=== PATIENT | female | born 1950 | race Caucasian/White ===

== ENCOUNTER → 2018-03-03 10:11 | Outpatient (CLI) | payer MEDICARE, SELFPAY ==
--- NOTE | 2018-03-03 10:17 | VDLE_ITS ---
Reason For Study: pain RIGHT LEFT GSV is normal. CFV is compressible, spontaneous, phasic, CFV is compressible, spontaneous, phasic, competent, and demonstrates normal competent and demonstrates normal augmentation. augmentation. FV is compressible, spontaneous, phasic, competent and demonstrates normal augmentation. POP V is compressible, spontaneous, phasic, competent and demonstrates normal augmentation. T/P Trunk is compressible. PTV is compressible. RT PerV is compressible. Varicose veins below the knee are dilated and noncompressible. Procedure Exam performed in department. The exam was diagnostic. A preliminary report was called and/or faxed to [facility]. Interpretation Summary Deep veins of the right lower extremity are patent and compressible segmentally. There is no evidence of right lower extremity deep vein thrombosis. Valvular competence appears intact within the proximal deep venous system on the right . The right greater saphenous vein appears patent and compressible segmentally. Acute superficial thrombophlebitis is noted involving superficial varicosities below the right knee. Crdering Physician: Shobha Grimes NP- Performed By: Vaughn Egan RVT and Student
== END ==
PROVIDERS: Family Provider Internal Medicine; PCP Internal Medicine; Referring Provider Nurse Practitioner Gerontology; Visit Provider Nurse Practitioner Gerontology
DX: M79.604 Pain in right leg (principal)
CPT/HCPCS: 93971

== ENCOUNTER → 2018-03-17 08:56 | Outpatient (CLI) | payer MEDICARE, BC, SELFPAY ==
--- NOTE | 2018-03-17 08:59 | VDLE_ITS ---
Reason For Study: pain RIGHT LEFT GSV is normal. CFV is compressible, spontaneous, phasic, CFV is compressible, spontaneous, phasic, competent, and demonstrates normal competent and demonstrates normal augmentation. augmentation. FV is compressible, spontaneous, phasic, competent and demonstrates normal augmentation. POP V is compressible, spontaneous, phasic, competent and demonstrates normal augmentation. T/P Trunk is compressible. PTV is compressible. RT PerV is compressible. Varicose veins below the knee are dilated and noncompressible. No change from previous study done 03/03/2018. Procedure Exam performed in department. The exam was diagnostic. A preliminary report was called and/or faxed to Shobha HAMMOND. Interpretation Summary Deep veins of the right lower extremity are patent and compressible segmentally. There is no evidence of right lower extremity deep vein thrombosis. Valvular competence appears intact within the proximal deep venous system on the right . The right greater saphenous vein appears patent and compressible segmentally. Acute superficial thrombophlebitis is noted involving superficial varicosities below the right knee. There has been no signficant change since a prior study on 03/03/2018. Crdering Physician: Shobha Grimes NP- Performed By: Virgilio Egan RVT
== END ==
PROVIDERS: Family Provider Internal Medicine; PCP Internal Medicine; Referring Provider Nurse Practitioner Gerontology; Visit Provider Nurse Practitioner Gerontology
DX: M79.604 Pain in right leg (principal)
CPT/HCPCS: 93971

== ENCOUNTER → 2018-08-11 08:57 | Outpatient (CLI) | payer MEDICARE, BC, SELFPAY ==
--- NOTE | 2018-08-11 09:04 | VDLE_ITS ---
Reason For Study: LEG PAIN RIGHT LEFT GSV is normal. GSV is normal. CFV is compressible, spontaneous, phasic, CFV is compressible, spontaneous, phasic, competent and demonstrates normal competent, and demonstrates normal augmentation. augmentation. FV is compressible, spontaneous, phasic, FV is compressible, spontaneous, phasic, competent and demonstrates normal competent and demonstrates normal augmentation. augmentation. POP V is compressible, spontaneous, phasic, POP V is compressible, spontaneous, phasic, competent and demonstrates normal competent and demonstrates normal augmentation. augmentation. T/P Trunk is compressible. T/P Trunk is compressible. PTV is compressible. PTV is compressible. RT PerV is compressible. LT PerV is compressible. Procedure Thrombus filled varicose veins noted lt Exam performed in department. medial calf. A preliminary report was called and/or faxed to Renny Grimes. Interpretation Summary Deep veins of the lower extremities are bilaterally patent and compressible segmentally. There is no evidence of deep vein thrombosis on either side. Valvular competence appears intact within the proximal deep venous systems bilaterally. The greater saphenous veins appear bilaterally patent and compressible segmentally. Acute superficial thrombophlebitis is noted involving superficial varicosities in the left medial calf. Ordering Physician: MANISH Rayo Referring Physician: Alix Byers M.D. Performed By: Katey Harper RVT
== END ==
PROVIDERS: Family Provider Internal Medicine; PCP Internal Medicine; Referring Provider Nurse Practitioner Gerontology; Visit Provider Nurse Practitioner Gerontology
DX: M79.605 Pain in left leg (principal)
CPT/HCPCS: 93970

== ENCOUNTER → 2019-03-09 12:49 | Outpatient (CLI) | payer MEDICARE, BC, SELFPAY ==
--- NOTE | 2019-03-09 12:54 | BI_ITS ---
BILATERAL DIGITAL MAMMOGRAM WITH TOMOSYNTHESIS: Mediolateraloblique and craniocaudal views demonstrate no evidence of dominant parenchymal masses. No cluster of microcalcifications or architectural distortion is seen. No evidence of skin thickening is identified. No comparison images are available. Breast Density: The breast tissue is heterogeneously dense, which may obscure small masses. CAD was used to assist in final assessment. BI/SCREEN MAMM (CAD) W/ELIAN BILAT IMPRESSION: NORMAL MAMMOGRAM BILATERALLY. ASSESSMENT CATEGORY: BIRADS Category 1: Negative. A letter regarding these results will be sent to the patient by the facility within 30 days. Yearly follow-up mammogram recommended. (A) Approximately 10% of breast cancers are not detected by mammography. A normal mammogram should not delay biopsy of a clinically suspicious abnormality. [id number] Electronically Signed: Neftaly Dawkins, at 17:43 EDT Tel , Service support ,
--- NOTE | 2019-03-09 12:54 | US_ITS ---
STUDY: ABDOMINAL ULTRASOUND - RIGHT UPPER QUADRANT REASON FOR VISIT: Female, 68 years old epigastric pain. TECHNIQUE: Ultrasound evaluation of the right upper quadrant was performed with real-time and static sidhu-scale imaging. TECHNICAL QUALITY: Adequate. COMPARISON: None. FINDINGS: Liver: The liver measures 13.3 cm. There is a heterogeneous echogenicity of the liver. The bile ducts are within normal limits. There is hepatic color flow. The direction of portal flow is hepatopetal. There is a demonstrated hypoechoic to anechoic region within the right hepatic lobe measuring 1.5 x 1.8 x 1.5 cm consistent with hepatic cyst. Gallbladder: Normal distended gallbladder. The gallbladder wall measures 3 mm. There is a negative sonographic Iraheta's sign. There is no pericholecystic fluid. There are no gallstones. Common Bile Duct (C.B.D.): The common bile duct measures 5 mm. Pancreas: Pancreatic head and body are partially visualized however the tail is incompletely seen due to overlying bowel gas. There is normal echogenicity of the pancreas. There is no demonstrated pancreatic mass or cyst. Right Kidney: Normal size of the right kidney. The right kidney measures 10.6 x 5.2 x 4.1 cm. Normal renal cortex. The right cortex measures 1.4 cm. There is no demonstrated renal mass or cyst. There is no right hydronephrosis. US/Abdomen Limited IMPRESSION: 1. No evidence of acute abdominal process by ultrasound. Simple appearing hepatic cyst as above. Electronically Signed: Gutierrez Sinha DO at 20:22 EDT , Service support ,
--- NOTE | 2019-03-09 13:29 | BD_ITS ---
STUDY: DUAL ENERGY X-RAY ABSORPTIOMETRY / DXA REASON FOR EXAM: Female, 68 years old. The patient is postmenopausal. Loss of height. TECHNIQUE: Bone Mineral Density (BMD) measurements of lumbar spine and bilateral hips were obtained. COMPARISON: None. FINDINGS: Lumbar Spine (L1-L4): g/cm2 (1.116) / T-score (-0.5) / Z-score (1.1) Findings are suggestive of normal bone density with a low fracture risk. Left Femur Total: g/cm2 (0.876) / T-score (-1.0) / Z-score (0.2) Left Femoral Neck: g/cm2 (0.798) / T-score (-1.7) / Z-score (-0.2) Right Femur Total: g/cm2 (0.890) / T-score (-0.9) / Z-score (0.3) Right Femoral Neck: g/cm2 (0.861) / T-score (-1.3) / Z-score (0.2) BD/Dexa Bone Density Study IMPRESSION: The patient is considered osteopenic as outlined below according to World Bo[employer] Organization (WHO) criteria with a moderate fracture risk. Reference Information: The T-score is the number of standard deviations above or below the standard which is normal for young adults at their peak bone mineral density. The World Health Organization (WHO) interprets the T-scores as follows: Above -1 Normal bone density Between -1 and -2.5 Osteopenia Equal to / or below -2.5 Osteoporosis As a practical clinical guideline, osteopenia may be graded as follows: Mild -1 through -1.5 Moderate -1.6 through -2.0 Severe -2.1 through -2.4 The Z-score is the number of standard deviations above or below age-matched controls. A Z-score of less than -1.5 would be considered abnormal. References: 1. NIH Osteoporosis and Related Bone Diseases http://www.osteo.org 2. International Society for Clinical Densitometry http://www.iscd.org 3. National Osteoporosis Foundation http://www.nof.org Electronically Signed: Franklin Caballero, at 15:33 EDT , Service support ,
== END ==
PROVIDERS: Family Provider Internal Medicine; PCP Internal Medicine; Referring Provider Internal Medicine; Visit Provider Internal Medicine
DX: R14.2 Eructation (principal); Z78.0 Asymptomatic menopausal state; Z12.31 Encounter for screening mammogram for malignant neoplasm of breast
CPT/HCPCS: 76705; 77063; 77067; 77080

== ENCOUNTER → 2020-12-26 13:39 | Outpatient (CLI) | payer MEDICARE, BC, SELFPAY ==
--- NOTE | 2020-12-26 13:50 | US_ITS ---
STUDY: ULTRASOUND OF THE FEMALE PELVIS - COMPLETE REASON FOR EXAM: Female, 70 years old. Abnormal uterine bleeding. LMP: Patient is postmenopausal. TECHNIQUE: Transabdominal and Transvaginal TECHNICAL QUALITY: Adequate. COMPARISON: None. FINDINGS: The uterus is anteverted and is in a midline position. The uterus measures 6.5 cm x 4.7 x 2.3 cm. Normal uterine cervix. The endometrium measures 2 mm in thickness, and is hyperechoic and fluid distended. There is no demonstrated myometrial mass. I.U.D. - The patient does not have an I.U.D. The right ovary is visualized. The right ovary measures 1.2 cm x 0.8 cm x 0.7 cm. There is no right ovarian cyst or ovarian mass. There is no visualized right adnexal mass or complex lesion. There is normal arterial and normal venous vascularity. The left ovary is visualized. The left ovary measures 0.9 cm x 0.8 cm x 1.7 cm. There is no left ovarian cyst or ovarian mass. There is no visualized left adnexal mass or complex lesion. There is normal arterial and normal venous vascularity. There is no fluid in the cul-de-sac. The pre void volume of the bladder was 216 ml. There was evidence of a uterine prolapse during the transvaginal examination. US/Pelvic (Non ) IMPRESSION: Fluid distended endometrium. Electronically Signed: Franklin Caballero MD at 15:08 EDT , Service support ,
--- NOTE | 2020-12-26 13:50 | US_ITS ---
STUDY: ULTRASOUND OF THE FEMALE PELVIS - COMPLETE REASON FOR EXAM: Female, 70 years old. Abnormal uterine bleeding. LMP: Patient is postmenopausal. TECHNIQUE: Transabdominal and Transvaginal TECHNICAL QUALITY: Adequate. COMPARISON: None. FINDINGS: The uterus is anteverted and is in a midline position. The uterus measures 6.5 cm x 4.7 x 2.3 cm. Normal uterine cervix. The endometrium measures 2 mm in thickness, and is hyperechoic and fluid distended. There is no demonstrated myometrial mass. I.U.D. - The patient does not have an I.U.D. The right ovary is visualized. The right ovary measures 1.2 cm x 0.8 cm x 0.7 cm. There is no right ovarian cyst or ovarian mass. There is no visualized right adnexal mass or complex lesion. There is normal arterial and normal venous vascularity. The left ovary is visualized. The left ovary measures 0.9 cm x 0.8 cm x 1.7 cm. There is no left ovarian cyst or ovarian mass. There is no visualized left adnexal mass or complex lesion. There is normal arterial and normal venous vascularity. There is no fluid in the cul-de-sac. The pre void volume of the bladder was 216 ml. There was evidence of a uterine prolapse during the transvaginal examination. US/Transvaginal Non- IMPRESSION: Fluid distended endometrium. Electronically Signed: Franklin Caballero MD at 15:08 EDT , Service support ,
== END ==
PROVIDERS: PCP Internal Medicine; Referring Provider Urology; Visit Provider Urology
DX: N93.9 Abnormal uterine and vaginal bleeding, unspecified (principal)
CPT/HCPCS: 76830; 76856

== ENCOUNTER 2021-03-31 10:18 | Observation (INO) | payer MEDICARE, BC, SELFPAY ==
[2021-01-09 13:39] VITALS: BMI 32.8
--- NOTE | 2021-03-25 14:17 | EKG12_ITS ---
Test Reason : PREOP Blood Pressure : / mmHG Vent. Rate : 082 BPM Atrial Rate : 082 BPM P-R Int : 144 ms QRS Dur : 072 ms QT Int : 352 ms P-R-T Axes : -18 054 053 degrees QTc Int : 411 ms Normal sinus rhythm Septal infarct , age undetermined Abnormal ECG Confirmed by JASS WEBSTER, MADISON ([id number]), sports editor GIOVANA FORD ([id number]) on 03/26/2021 9:31:43 AM Referred By: Esmer Jay Confirmed By:MADISON REGAN MD
[2021-03-25 15:00] LABS: Absolute Lymphocyte Count 1.16 X10^3/uL (0.83-4.51); Absolute Neutrophil Count 2.9 X10^3/uL (2.0-7.7); Basophil# 0.03 X10^3/uL; Basophil% 0.6 % (0-1); Eosinophil# 0.23 X10^3/uL; Eosinophils% 4.7 % (0-5); Hematocrit 43.8 % (37-47); Hemoglobin 14.6 g/dL (12.0-15.0); Lymphocyte # 1.16 X10^3/ul (0.83-4.51); Lymphocyte % 23.8 % (19-41); Mean Corp Hgb Conc 33.3 g/dL (32-36); Mean Corpuscular Hgb 30.8 pg (27.0-32.0); Mean Corpuscular Volume 92.4 fL (81-99); Mean Platelet Vol. 10.5 fl (6.2-12.0); Monocyte# 0.52 X10^3/uL; Monocyte% 10.7 % (0-10); NRBC Flagged by Analyzer 0 % (0-5); Neutrophil # 2.93 X10^3/uL (2.7-7.7); Platelet Count 193 K/mm3 (150-450); RBC Distribution Width CV 13.2 % (11.6-14.6); Red Blood Count 4.74 M/mm3 (4.2-5.4); White Blood Count 4.9 K/mm3 (4.4-11.0)
[2021-03-25 15:40] LABS: ALB/GLOB Ratio 1.1 RATIO (0.9-2.4); AST(SGOT) 34 U/L (15-37); Alanine Aminotransfer ALT/SGPT 25 U/L (13-56); Albumin, Serum 3.7 g/dL (3.2-5.0); Alkaline Phosphatase 93 U/L (45-117); Anion Gap 6 (5-15); BUN 15 mg/dL (7-18); BUN/Creat Ratio 15.4 RATIO (10-20); Calcium,Total 9.1 mg/dL (8.5-10.1); Chloride 105 mmol/L (98-107); Creatinine, Serum 0.98 mg/dL (0.55-1.02); EST Glomerular Filtration Rate 60 mL/min (>60); Est Glom Filt Rate - Afr Amer 73 mL/min (>60); Globulin 3.5 g/dL (2.2-4.2); Glucose 95 mg/dL (74-106); Potassium 3.9 mmol/L (3.5-5.1); Protein, Total 7.2 g/dL (6.4-8.2); Sodium Level 140 mmol/L (136-145)
[2021-03-25 15:40] LABS: Magnesium 2.1 mg/dL (1.6-2.6)
[2021-03-31] VITALS (20 sets, daily range): BP systolic 146–180; BP diastolic 74–95; PULSE 74–90; RESP 12–18; TEMP 35.8–36.8; O2SAT 96–100; BMI 33.6
--- NOTE | 2021-03-31 | HYST_PTH ---
PATIENT: GIULIANA MATA LOC: MS2 U#:[id number] AGE/SX: 70/F [place] [facility] [place]31/[address]: Dr. Esmer Jay MD : 1950 BED: 1 DIS: 04/01/2021 SPEC #: [id number] RECD: 03/31/21 12:48 STATUS: ALEKSEY MCKINNEY #: [id number] HALLIE: 03/31/21 00:[address]: Esmer Jay DEPT: SURGICAL PATHOLOGY RECD BY: Macario Nicholas ENTERED: 03/31/21 12:48 SP TYPE: HYSTERECT OTHR DR: MD Dr. Alix Castro DO Tissues: Uterus, NOS Procedures: Surgery Specimen Level V HEADER OPERATION: ERAS, vaginal hysterectomy, right salpingo-oophorectomy PRE-OP DIAGNOSIS: Incomplete uterovaginal prolapse, urge incontinence TISSUE SUBMITTED: Uterus, cervix, right fallopian tube, right ovary MICROSCOPIC DIAGNOSIS Uterus, cervix, right fallopian tube and right ovary, vaginal hysterectomy and right salpingo-oophorectomy: Cervix ? chronic cystic cervicitis. - Parakeratosis. Endometrium ? proliferative endometrium. Myometrium ? intramural leiomyomas (largest measuring 0.8 cm in greatest dimension). - Adenomyosis. Right fallopian tube - no pathologic diagnosis. Right ovary - no pathologic diagnosis. A calcified fibrous nodule, adjacent to fallopian tube (0.5 cm in greatest dimension). SJ:desire 04/01/2021 MICROSCOPIC DESCRIPTION Slides are reviewed. GROSS DESCRIPTION Received in fixative is one container labeled with the patient's name and designated uterus, cervix, right fallopian tube, right ovary. The specimen consists of a hysterectomy specimen consisting of uterus with cervix and detached fallopian tube and ovary identified as right. The uterus with cervix weighs 38 gm and?measures 8 x 4 x 2.5 cm. The serosal surface is mora, glistening. The ectocervical mucosa is unremarkable. The external os is oval in contour. The endocervical canal measures 3 cm in length and the endocervical mucosa is unremarkable. The triangular endometrial cavity measures 4.5 cm in length and up to 2 cm in width. The endometrium is mora, glistening without any mass lesion and measures <0.1 cm in thickness. Sections of the uterine wall reveal two nodular masses measuring 0.5 and 0.8 cm in greatest dimension. Sections of the fundus of the uterus reveal an ill-defined nodular mass. The uninvolved uterine wall measures up to 1.5 cm in thickness. The detached fallopian tube measures 4.5 cm in length and 0.5 cm in diameter. The fimbrial end is identified. No tubo-ovarian adhesions are noted. A small nodule is noted adjacent to the fallopian tube measuring 0.5 cm in greatest dimension and appears to be consistent with calcified nodule. The adjacent ovary measures 2 x 1 x 0.7 cm. Sections reveal unremarkable cut surfaces. Final Inspector And Tester sections are submitted in nine cassettes as follows: 1??anterior cervix, 2 - posterior cervix, 3 & 4 - anterior uterine wall (3 also contains the smaller nodular mass), 5 & 6 - posterior uterine wall, 7 - larger nodular mass and ill-defined nodular mass at the fundus, 8??right fallopian tube and ovary, 9 - calcified nodule adjacent to the fallopian tube after decalcification. / SJ:desire 03/31/21 TC:1 CPT: 50979, 40621
[2021-03-31] MEDS: Lactated Ringers 1,000 ML 40 ML IV ×3 (06:23→11:55)
[2021-03-31] MEDS: Scopolamine 1mg/72hr Patch 1 PATCH TD (06:29)
[2021-03-31] MEDS: Acetaminophen 500 MG Tablet 1000 MG PO (06:30)
[2021-03-31] MEDS: Enoxaparin 40 MG/0.4 ML Syringe SC ×2 (06:30→13:34)
[2021-03-31] MEDS: Gabapentin 600 MG Tablet PO (06:30)
[2021-03-31] MEDS: Celecoxib 200 MG Capsule 400 MG PO (06:30)
[2021-03-31] MEDS: dexAMETHasone 10 MG/ML Vial 8 MG IV (06:43)
[2021-03-31 07:05] LABS: Bedside Glucose 74 mg/dL (70-110)
--- NOTE | 2021-03-31 07:21 | PCM.HP.BLA ---
History and Physical Date of Admission: 03/31/21 [facility] [id number] [place] [address] [phone] OFFICE VISITDate of Service: 03/17/21 MR#:[id number]:[id number]: GIULIANA MATARep #:[id number]:[id number] Provider:Dr. 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: No Allergies codeine [From G Tussin AC] Allergy (Mild, Verified 01/09/21 13:39) hives guaifenesin [From G Tussin AC] Allergy (Mild, Verified 01/09/21 13:39) hives Medications aspirin 81 mg chewable tablet 81 mg PO DAILY 01/09/21 [History Confirmed 03/17/21] lisinopril 20 mg tablet 20 mg PO DAILY 01/09/21 [History Confirmed 03/17/21] lovastatin 40 mg tablet 40 mg PO DAILY 01/09/21 [History Confirmed 03/17/21] multivitamin 1 tab PO DAILY 01/09/21 [History Confirmed 03/17/21] nystatin-triamcinolone 100,000 unit/gram-0.1 % topical ointment 1 applic TOPICAL TID #15 g 01/09/21 [Rx Confirmed 03/17/21] estradiol 1 appful VAGINAL DAILY 03/17/21 [History Confirmed 03/17/21] Is last menstrual period known: No Post menopausal: Yes Patient : No : No PFSH Medical History Hyperlipidemia Hypertension Surgical History H/O cardiac radiofrequency ablation H/O heart surgery Family History Grandmother Colon cancer Sister Rectal cancer Father Prostate cancer Social History Smoking Status: Never smoker substance use type: does not use caffeine: Yes seatbelt use: always do you feel safe at home: Yes additional social history: - Patient is retired [employer] BSO Natalya combo Details: GIULIANA MATA is a 70 year old who presents for preop visit. planning TVHBSO combo case with Natalya. Female Reproductive History Menopausal Symptoms: No night sweats Pregancy History 2 Elective abortions Hx Para 2 Spontaneous abortions Hx # Term Pregnancies Ectopic pregnancies Hx # Pregnancies Multiple births # of living children ROS Const Constitutional: Denies fatigue, night sweats, weight gain or weight loss ENT ENT: Reports system reviewed and no additional complaints, except as documented Cardio Card: Denies chest pain Resp Resp: Denies cough or dyspnea GI GI: Reports as per HPI and abdominal pain; Denies constipation, nausea or vomiting : Reports urinary incontinence, urinary urgency and vaginal discharge; Denies nipple discharge, urinary frequency, urinary hesitancy, vaginal dryness, vaginal odor or vaginal pruritus Musc Musc: Denies arthralgias, back pain or muscle weakness Skin Skin/Breast: Denies alopecia, change in hair, dry skin, breast mass, breast pain, breast skin changes or nipple discharge Neuro Neuro: Reports system reviewed and no additional complaints, except as documented Psych Psych: Reports system reviewed and no additional complaints, except as documented Endo Endo: Denies cold intolerance, excessive sweating, heat intolerance or polydipsia Sumeet/Lymph Hematologic/Lymphatic: Denies easy bleeding, Denies easy bruising and Denies lymphadenopathy Exam Const General: cooperative, healthy appearing, comfortable, no acute distress and well developed Orientation: alert [facility] Head: normal to inspection and normocephalic Ears: hearing grossly normal bilaterally and external ears normal Nose: external nose normal and nares normal Face and sinus: normal facial exam Neck Neck: normal visual inspection and no lymphadenopathy Thyroid: thyroid normal Chest Chest palpation & inspection: abnormal inspection of the chest and abnormal inspection of the chest (patchy thickening and plaque like areas) Resp Effort & Inspection: normal respiratory effort Auscultation: clear to auscultation bilaterally Cardio Rate: regular rate Rhythm: regular rhythm Heart Sounds: S1 normal and S2 normal GI Inspection: normal to inspection and non-distended Palpation: soft and no hepatosplenomegaly General: bladder normal to palpation External Female Exam: abnormal external appearance, normal appearance of the urethra and lesion (patchy thickening and plaque like areas) Urethra: normal appearance of the urethra, normal palpation and no discharge Speculum Exam - Vagina: normal appearance of the vagina and normal vaginal discharge Speculum Exam - Cervix: normal appearance of the cervix and nontender Bimanual Exam- Vagina & Uterus: normal bimanual exam, uterine size normal, bladder normal to palpation, uterine shape normal, No tender, uterine mobility normal, consistency normal, normal palpation and non-tender Bimanual Exam- Adnexa, other: normal adnexae, adnexae mobile, no masses and normal Pelvic Support: normal Musc Other: gross motor intact no deficits, full bilateral strength Skin General: no rashes or lesions noted Neuro General: patient alert, patient awake, moves all extremities and no focal motor deficits Motor: muscle tone normal throughout Extrem General: normal to inspection and no pedal edema Psych Appearance: grossly normal Mental Status: mental status grossly normal Affect: normal affect Speech and Movement: speech and movement normal Coding Level of Care Code No Charge Diagnoses Cystocele Assessment and Plan Assessment and Plan (1) Cystocele: Status: Acute Comment: plan TVHBSO combo case with natalya Plan - Dr. Esmer Jay MD: After discussing the patient's diagnosis and treatment plan options, patient wishes to proceed with surgical management. I have discussed with the patient the risks, benefits, and alternatives of the procedure which include but are not limited to risks of anesthesia, bleeding, infection, possible damage to bowel, bladder, or surrounding vasculature which could lead to additional surgery to evaluate any complications. Patient agrees to procedure and wishes to proceed. ACOG/uptodate references given for additional information regarding procedure. UPDATE- I have seen the patient and performed any clinically relevant updates to the history and physical exam. Esmer Jay MD
--- NOTE | 2021-03-31 07:21 | PCM.OPRPT ---
Problems Associated Problem List Diagnoses (1) Cystocele, midline: (2) Cystocele: (3) Vulvar dermatitis: Report of Operation Date of Procedure: 03/31/21 Pre-Operative Diagnosis: see PL Post-Operative Diagnosis: same Surgery/Procedure Performed:: TVH LSO Description of Surgical Findings:: nl uterus right tube and ovary left tube and ovary normal unable to be reached and left in vivo. process project engineer: Ansley Dunlap Type of Anesthesia: General Specimen's removed: uterus, tubes, right tube and ovary Drains: ibarra Estimated Blood Loss (mL): 200 Fluids Replaced: crystalloid Description of Procedure: Patient was taken to the operating room and was placed under general anesthesia was prepped and draped in normal sterile fashion in the dorsal lithotomy position. Preoperative antibiotics and SCDs and Ibarra catheter was placed inside the bladder. Weighted speculum was placed in the vagina and the anterior and posterior lip of the cervix was grasped with 2 Raymon clamps and circumferentially injected with dilute vasopressin. A circumferential incision was made with a scalpel and the posterior cul-de-sac was entered into sharply and a longneck speculum was placed. The anterior cul-de-sac was also dissected down and entered into sharply and the uterosacral ligaments were clamped cut and suture ligated bilaterally followed by the cardinal ligaments which were Clamped cut and suture ligated bilaterally with 0 Monocryl. The uterus serially descended and progressive bites were taken bilaterally up to the level of the utero-ovarian ligament bilaterally which was clamped transected and double ligated with 0 Monocryl suture and 0 Vicryl free tie. right fallopian tube and ovary was well visualized and noted be within normal limits and the IP ligament was transected across the base with a surinder clamp, then the ovary and tube was removed and the pedicle double ligated with O monocryl. Left tube and ovary was unable to be removed due to limited vaginal access to it but they both appear to be within normal limits. Additional [id number] sutures were required at the base of bilateral pelvic sidewall pedicles #2 obtain hemostasis. The vagina was closed with [id number] 0 Vicryl pop offs including the posterior and anterior peritoneum in the reapproximation. Some breakthrough bleeding was still noted and therefore 2 of the cuff sutures were removed and bleeding identified along the right anterior peritoneum which was sutured with 0 Vicryl. The rest of the cuff was then again closed and excellent hemostasis was noted. Then Dr. Hoang began her portion of the procedure. Grafts/Implants Used: none Complications none Admit VTE Documentation VTE Present on Admission: No VTE Mechan Device Prophylaxis: SCD's VTE Pharm Prophylaxis ordered?: Yes Multi Select Codes Urinary/Genital Urinary/Genital CPT Codes: 30411 TVH+BS/O <250gr uterus
[2021-03-31] MEDS: Cefazolin 2 GM in 0.9% Normal Saline 100 ML IV (07:28)
--- NOTE | 2021-03-31 08:12 | PCM.OPRPT ---
Problems Associated Problem List Diagnoses (1) Cystocele: Report of Operation Date of Procedure: 03/31/21 Pre-Operative Diagnosis: cystocele Post-Operative Diagnosis: same Surgery/Procedure Performed:: anterior repair, bilateral sacrospinous ligament fixation with Dermis, cystoscopy with bilateral ureteral catheterization Surgeon: Jacqueline Hoang Type of Anesthesia: General Estimated Blood Loss (mL): 25 cc Description of Procedure: The patient is a 70-year-old female who presents for surgical intervention for pelvic organ prolapse after having undergone urodynamics and cystoscopy in the office. Informed consent was obtained. The patient was taken to the operating room and placed on the operating room table. Anesthesia monitored the head, neck, airway, IV access and vital signs throughout the case. Once anesthesia was appropriate ministered the patient was placed into dorsal lithotomy position and was prepped and draped in usual sterile fashion. She was then placed into Trendelenburg position and a Desouza catheter was inserted to straight drain and her bladder was drained. Hysterectomy and right salpingo-oophorectomy was then performed with closure of the cuff line per Dr. Jay. At this time the case was turned over to az. The anterior vaginal wall was grasped with Allis clamps and infiltrated submucosally with vasopressin. At this time a midline vertical incision approximately 2 cm in length was then made. Sharp and blunt dissection was performed on both sides of the incision as well as proximal and distal to the incision. Dissection continued until the sacrospinous ligaments were identified and freed from surrounding tissues. Proximally the dissection continued until the vaginal apex was reached and distally towards the area of the bladder neck. At this time the Capio device was used to pass an Ethibond suture through the sacrospinous ligament and through the piece of trimmed dermis bilaterally. The dermis was then secured into position and the suture was brought out at the vaginal apex through the mucosa. 2-0 Vicryl was used to tack the remainder of the dermis in interrupted fashion to the vaginal apex and full-thickness manner. Bilaterally the dermis was tacked to the white line with 2-0 Vicryl. At this time the cystocele was reduced completely and the anterior vaginal wall was supported. The vaginal mucosa was then closed with running interlocking 2-0 Vicryl. At this time the Ethibond sutures were tied down to the sacrospinous ligaments completing the repair. The Desouza catheter was then removed and a cystourethroscopy was performed through the urethra under direct visualization. Bilateral ureteral orifices were identified. There were no injuries in the urinary bladder, no hemorrhage, no mass or other abnormality. A 5 [place] whistle-tip catheter was then used to gently cannulate each ureteral orifice to 20 cm without difficulty and without evidence of injury. At this time the cystoscope was removed and the Desouza catheter was inserted. The vagina was packed with vaginal estrogen cream and plain packing. The patient was awakened and taken to the recovery room in good condition. There were no complications during this procedure. Grafts/Implants Used: Mission Dermis Complications None Admit VTE Documentation VTE Present on Admission: Yes VTE Mechan Device Prophylaxis: SCD's VTE Pharm Prophylaxis ordered?: Yes
[2021-03-31] MEDS: Vasopressin 20 UNITS/ML Vial (09:49)
[2021-03-31] MEDS: Estrogens,Conj. 1 Tube 1 DOSE (09:50)
[2021-03-31] MEDS: Ondansetron 4 MG/2 ML Vial IV (10:15)
--- NOTE | 2021-03-31 10:24 | PCM.DC ---
Discharge Instructions Diet Discharge Diet: No restrictions Activity Discharge Activity: May Not Drive and May Shower May resume sexual activity in: 8 weeks Lifting Restrictions: 5 pounds Additional Activity Instructions:: No exercise, no strenuous activity, no sexual activity, no tub bathing, no hot tubs, no swimming Dressing / Incision Call your doctor if your incision/area has: Continuous Slow Oozing, Sudden Increased Bleeding, Increased Pain/ Swelling, Increased Redness, Foul Smelling Discharge and Swelling at the incision site Call your doctor if you observe: Fever of 101 or Higher, Inability to urinate, Inability to have a bowel movement and Uncontrolled pain Follow Up Care Please Follow Up With: Jacqueline Hoang MD When: call office for appt Test Results: Test results from this visit will be discussed in further detail at your follow-up appointment, if applicable. Discharge Plan Admission Attending Provider: Esmer Jay Primary Care Provider: Alix Byers Consulting Providers: Jacqueline Hoang Discharge Orders/Prescriptions Prescriptions: New oxycodone-acetaminophen [oxycodone-acetaminophen] 1 TABLET tablet 2 tab PO Q8H PRN PRN (Reason: Pain) 7 Days Qty: 20 RF: 0 cephalexin [cephalexin] 500 MG capsule 500 mg PO Q12 3 Days Qty: 6 RF: 0 ondansetron HCl [ondansetron HCl] 8 MG tablet 8 mg PO Q8H PRN PRN (Reason: Nausea) 7 Days Qty: 20 RF: 0 No Action lisinopril 20 mg tablet 20 mg PO DAILY RF: 0 lovastatin 40 mg tablet 40 mg PO DAILY RF: 0 multivitamin Tablet 1 tab PO DAILY RF: 0 aspirin 81 mg tablet,chewable 81 mg PO DAILY RF: 0 nystatin-triamcinolone 100,000-0.1 unit/gram-% ointment 1 applic topical TID PRN (Reason: rash under breasts) RF: 0 fluconazole 150 mg tablet 150 mg PO DAILY RF: 0 triamcinolone acetonide 0.1 % cream 1 applic TOPICAL BID RF: 0 Referrals / Follow Up: Alix Byers DO [Primary Care Provider] - Disposition Disposition (needs filled in before D/C Order can be placed): Home, Self Care
[2021-03-31 10:41] LABS: Bedside Glucose 139 mg/dL (70-110)
--- NOTE | 2021-03-31 10:49 | SUR.PHASEI ---
WE ARE MONITORING THE PATIENT'S CO2 LEVEL. 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 SHE OS 100 PERCENT ON 6L VIA SIMPLE MASK.
--- NOTE | 2021-03-31 11:43 | SUR.PHASEI ---
PATIENT WAS STILL COMPLAINING OF PAIN. I WAS GIVING ANOTHER DOSE OF FENTANYL SHE SAID SHE FELT DIZZY. BP WAS CHECKED AND IT IS 168/85. I GAVE 12.5MCG OF FENTANYL AND DID NOT GIVE HER ANYMORE D/T DIZZINESS.
--- NOTE | 2021-03-31 12:19 | SUR.PHASEI ---
Noted apnea when patient sleeps. No previous diagnosis; patient notes snoring at night and feels tired in the day and takes one nap a day. This nurse educated patient on apnea. Patient is wearing a scop patch; noted dry mouth and dizziness. This nurse to tell anesthesia to be aware.
--- NOTE | 2021-03-31 12:31 | SUR.PHASEI ---
Petra MARTINEZ asked Dr. Leahy if it would be ok to take off her scopalamine patch d/t c/o dizziness and dry mouth. He told her that it would be okay to remove.
--- NOTE | 2021-03-31 12:34 | SUR.PHASEI ---
scop patch removed per Dr. Leahy, d/t dizziness and dry mouth and drowsiness
--- NOTE | 2021-03-31 12:35 | PCM.DC ---
Discharge Instructions Diet Discharge Diet: No restrictions Activity Discharge Activity: Return to Normal Activity, May Not Drive (while taking narcotic pain medications.) and May Shower May resume sexual activity in: 8 weeks Additional Activity Instructions:: No exercise, no strenuous activity, no sexual activity, no tub bathing, no hot tubs, no swimming Dressing / Incision Call your doctor if your incision/area has: Continuous Slow Oozing, Sudden Increased Bleeding, Increased Pain/ Swelling, Increased Redness, Foul Smelling Discharge and Swelling at the incision site Call your doctor if you observe: Fever of 101 or Higher, Inability to urinate, Inability to have a bowel movement and Uncontrolled pain Follow Up Care Please Follow Up With: Jacqueline Hoang MD Test Results: Test results from this visit will be discussed in further detail at your follow-up appointment, if applicable. Discharge Plan Admission Primary Reason for Your Visit: hysterectomy Attending Provider: Esmer Jay Primary Care Provider: Alix Byers Consulting Providers: Jacqueline Hoang Discharge Orders/Prescriptions Prescriptions: New oxycodone-acetaminophen [oxycodone-acetaminophen] 1 TABLET tablet 2 tab PO Q8H PRN PRN (Reason: Pain) 7 Days Qty: 20 RF: 0 cephalexin [cephalexin] 500 MG capsule 500 mg PO Q12 3 Days Qty: 6 RF: 0 ondansetron HCl [ondansetron HCl] 8 MG tablet 8 mg PO Q8H PRN PRN (Reason: Nausea) 7 Days Qty: 20 RF: 0 No Action lisinopril 20 mg tablet 20 mg PO DAILY RF: 0 lovastatin 40 mg tablet 40 mg PO DAILY RF: 0 multivitamin Tablet 1 tab PO DAILY RF: 0 aspirin 81 mg tablet,chewable 81 mg PO DAILY RF: 0 nystatin-triamcinolone 100,000-0.1 unit/gram-% ointment 1 applic topical TID PRN (Reason: rash under breasts) RF: 0 fluconazole 150 mg tablet 150 mg PO DAILY RF: 0 triamcinolone acetonide 0.1 % cream 1 applic TOPICAL BID RF: 0 Referrals / Follow Up: Alix Byers DO [Primary Care Provider] - Disposition Disposition (needs filled in before D/C Order can be placed): Home, Self Care
--- NOTE | 2021-03-31 13:10 | SUR.PHASEI ---
waiting room upstairs. will wait in AC 20. VSS. will cont to monitor
[2021-03-31] MEDS: HYDROcodone Bitartrate/Apap 5/325 Tablet PO ×2 (15:50→22:50)
[2021-03-31] MEDS: Dextrose 5%-Lactated Ringers 1,000 ML 100 ML IV (17:39)
[2021-03-31] MEDS: Atorvastatin Calcium 10 MG Tablet PO (21:16)
[2021-03-31] MEDS: Cephalexin 500 MG Capsule PO (21:16)
[2021-03-31] MEDS: Docusate Sodium 100 MG Capsule PO (21:16)
[2021-04-01 02:59] VITALS: BP 134/74; PULSE 76; RESP 18; TEMP 36.5; O2SAT 94
[2021-04-01] MEDS: Dextrose 5%-Lactated Ringers 1,000 ML 100 ML IV (03:03)
[2021-04-01 06:28] VITALS: BP 140/68; PULSE 75; RESP 18; TEMP 36.7; O2SAT 97
[2021-04-01] MEDS: HYDROcodone Bitartrate/Apap 5/325 Tablet PO (06:33)
--- NOTE | 2021-04-01 07:41 | PCM.PN.OB ---
Subjective Subjective patient recovering well, denies CP, SOB, N, or V. patient is up to chair, ibarra cath remains,tolerating adequate po, and pain is controlled with oral medications. Objective Data Objective Data Vital Signs: Vital Signs Temp Pulse Resp BP Pulse Ox 98.1 F 75 18 140/68 H 97 04/01/21 06:28 04/01/21 06:28 04/01/21 06:28 04/01/21 06:28 04/01/21 06:28 Oxygen Flow Rate (L/min) 1 Oxygen Delivery Method Room Air Weight: 196 lb Body Mass Index (BMI) 33.6 Intake & Output: Intake and Output for Last 24 Hours 03/30/21 03/31/21 04/01/21 23:59 23:59 23:59 Intake Total 2454.33 / 2454.33 940 / 940 Output Total 3050 / 3050 1100 / 1100 Balance -595.67 / -595.67 -160 / -160 Lab / Micro Data Result Diagrams: 03/25/21 14:32 03/25/21 14:32 Labs: Laboratory Results - last 24 hr 03/31/21 10:35: POC Glucose 139 H Micro: Microbiology 03/25/21 14:15 Nasal Secretion SARS-CoV-2 Antigen (Rapid) - Final Physical Exam Const alert, oriented x3 and no apparent distress Resp normal respiratory effort GI soft to palpation and non-distended Narrative: Minimal drainage on peripad Bladder / Kidney Exam: catheter in place Assessment & Plan (1) Status post vaginal hysterectomy: (2) History of right salpingo-oophorectomy: PLAN: patient is s/p TVH RSO POD 1 1. routine ERAS protocol postop care- increase ambulation, encourage oral intake and oral control of pain. lovenox and scds for dvt prophylaxis. See Dr Hoang orders for follow up care and discharge
[2021-04-01 08:11] LABS: Absolute Lymphocyte Count 0.82 X10^3/uL (0.83-4.51); Absolute Neutrophil Count 10.1 X10^3/uL (2.0-7.7); Hematocrit 38.3 % (37-47); Hemoglobin 13.3 g/dL (12.0-15.0); Lymphocyte # 0.82 X10^3/ul (0.83-4.51); Mean Corp Hgb Conc 34.7 g/dL (32-36); Mean Corpuscular Hgb 31.8 pg (27.0-32.0); Mean Corpuscular Volume 91.6 fL (81-99); Mean Platelet Vol. 10.5 fl (6.2-12.0); Monocyte# 0.74 X10^3/uL; Monocyte% 6.3 % (0-10); NRBC Flagged by Analyzer 0 % (0-5); Neutrophil % 86.4 % (47-70); Platelet Count 192 K/mm3 (150-450); RBC Distribution Width CV 13.4 % (11.6-14.6); RBC Distribution Width SD 45.1 fl (35.1-43.9); Red Blood Count 4.18 M/mm3 (4.2-5.4); White Blood Count 11.7 K/mm3 (4.4-11.0)
[2021-04-01 10:00] VITALS: BP 146/80; PULSE 75; RESP 18; TEMP 36.6; O2SAT 99
[2021-04-01] MEDS: Enoxaparin 40 MG/0.4 ML Syringe SC (10:05)
[2021-04-01] MEDS: Aspirin 81 MG TAB.CHEW PO (10:06)
[2021-04-01] MEDS: Docusate Sodium 100 MG Capsule PO (10:06)
[2021-04-01] MEDS: Cephalexin 500 MG Capsule PO (10:06)
[2021-04-01] MEDS: Lisinopril 20 MG Tablet PO (10:06)
--- NOTE | 2021-04-01 11:07 | NURSING ---
pt has not voided yet-pt aware to be drinking fluid
--- NOTE | 2021-04-01 12:00 | CASEMGMT ---
MICHELLE MCMULLEN in to discuss STAPLES form with patient. RN BENEDICT explained STAPLES form to patient, patient voiced understanding. Patient signed STAPLES form and filed in chart. Patient provided with copy of signed STAPLES form. Patient had no further questions to concerns at this time.
--- NOTE | 2021-04-01 12:25 | WOUNDNOTE ---
Pt had been up to the bathroom and voided 350 cc's. patient is just waiting ride for d/c home. MICHELLE Cullen reviewed discharge papers, etc. with patient.
== END 2021-04-01 12:35 | disposition home or self-care (01) ==
LOC: SDC 16:43 → MS2 16:43
PROVIDERS: Anesthesiology; Admitting Provider Urology; PCP Internal Medicine; Referring Provider Obstetrics & Gynecology; Visit Provider Obstetrics & Gynecology
PROC: (CPT 58260; principal; 2021-03-31 07:10)
PROC: (CPT 57260; 2021-03-31 07:10)
DX: N81.2 Incomplete uterovaginal prolapse (principal); E78.5 Hyperlipidemia, unspecified; Z86.718 Personal history of other venous thrombosis and embolism; K21.9 Gastro-esophageal reflux disease without esophagitis; I10 Essential (primary) hypertension; Z79.899 Other long term (current) drug therapy; Z79.82 Long term (current) use of aspirin; G25.81 Restless legs syndrome; L30.8 Other specified dermatitis; D68.9 Coagulation defect, unspecified; Z95.2 Presence of prosthetic heart valve
CPT/HCPCS: 00944; 57240; 58262; 36415; 80053; 82962; 83735; 85025; 86850; 86900; 86901; 87426; 88307; 93005; 96360; 96361; 96372; 99218; 99251; C9803; J7120; C1758; G0378; G0463; J2405

== ENCOUNTER → 2021-04-08 10:48 | Outpatient (CLI) | payer MEDICARE, BC, SELFPAY ==
--- NOTE | 2021-04-08 10:51 | VDLE_ITS ---
Reason For Study: Pain RIGHT LEFT CFV is compressible, spontaneous, phasic, CFV is compressible, spontaneous, phasic, competent and demonstrates normal competent, and demonstrates normal augmentation. augmentation. FV is compressible, spontaneous, phasic, competent and demonstrates normal augmentation. POP V is compressible, spontaneous, phasic, competent and demonstrates normal augmentation. T/P Trunk is compressible. PTV is compressible. RT PerV is compressible. Acute superficial vein thrombosis is noted in the right GSV proximal calf. Thrombus filled varicose veins noted in the prox-mid calf. Procedure This is a venous duplex using B-mode, color flow and spectral Doppler. Exam performed in department. A preliminary report was called and/or faxed to [facility]. VL/Venous Duplex US, Unilateral Interpretation Summary There is no evidence of right lower extremity deep vein thrombosis. Superficial thrombophlebitis right great saphenous vein proximal calf. Superficial thrombosed phlebitis involving right lower extremity varicosities p roximal to mid calf Normal flow patterns left common femoral vein Ordering Physician: Josefina Hoff Referring Physician: Alix Byers M.D. Performed By: Vashti Bell RVT
== END ==
PROVIDERS: PCP Internal Medicine; Referring Provider Nurse Practitioner; Visit Provider Nurse Practitioner
DX: M79.604 Pain in right leg (principal)
CPT/HCPCS: 93971

== ENCOUNTER → 2021-04-10 10:06 | Outpatient (CLI) | payer MEDICARE, BC, SELFPAY ==
--- NOTE | 2021-04-10 10:45 | RAD_ITS ---
STUDY: X-RAY CHEST REASON FOR EXAM: Female, 70 years old. Fever and cough TECHNIQUE: PA and lateral views of the chest. COMPARISON: None. FINDINGS: The lungs are clear and expanded. There is no demonstrated pleural abnormality. Sternal cerclage wires are present from a prior sternotomy. Normal mediastinum and sharon. Normal visualized pulmonary arteries. Normal visualized aortic arch and descending thoracic aorta. There are diffuse degenerative changes of the visualized thoracic spine. Normal visualized ribs, clavicles, and shoulders. There is no demonstrated abnormality of the visualized soft tissue structures of the upper abdomen. RAD/Chest PA and Lateral IMPRESSION: No acute pulmonary process Electronically Signed: Edward Deal MD at 16:50 EDT , Service support ,
== END ==
PROVIDERS: PCP Internal Medicine; Visit Provider Internal Medicine Pulmonary Disease
DX: U07.1 COVID-19 (principal); R05.9 Cough, unspecified
CPT/HCPCS: 71046; 87635; C9803; U0005; U0003

== ENCOUNTER 2021-04-11 15:56 | Outpatient (CLI) | payer MEDICARE, BC, SELFPAY ==
[2021-04-11 16:30] VITALS: BP 140/76; PULSE 80; RESP 16; TEMP 36.7; O2SAT 98; BMI 32.2
[2021-04-11] MEDS: 0.9% Saline Lock 10 ML Syringe IV (16:31)
[2021-04-11 17:01] VITALS: BP 134/83; PULSE 79; RESP 16; TEMP 36.5; O2SAT 100
[2021-04-11 18:01] VITALS: BP 147/77; PULSE 77; RESP 16; TEMP 36.8; O2SAT 100
== END 2021-04-11 18:02 | disposition home or self-care (01) ==
LOC: MS3OUT 15:56 → MS3 15:57
PROVIDERS: PCP Internal Medicine; Referring Provider Nurse Practitioner Acute Care; Visit Provider Nurse Practitioner Acute Care
DX: Z23 Encounter for immunization (principal); U07.1 COVID-19
CPT/HCPCS: J7050; M0245; Q0245; A4216

== ENCOUNTER → 2022-12-11 | Outpatient (CLI) | payer MEDICARE, BC, SELFPAY ==
--- NOTE | 2022-12-11 11:35 | CT_ITS ---
STUDY: CT ABDOMEN AND PELVIS WITH AND WITHOUT CONTRAST REASON FOR EXAM: Female, 72 years old. LLQ Pain RADIATION DOSAGE (If Supplied By Facility): CTDIvol = ( 19.90 ) mGy, DLP = ( 2045.87 ) mGycm TECHNIQUE: Transaxial images were obtained from the dome of the diaphragm to the symphysis pubis without oral contrast. IV 100mL Isovue-300 was administered. Sagittal and coronal images were reconstructed. Individualized dose optimization techniques were used for this CT. COMPARISON: None. FINDINGS: The visualized lung bases are unremarkable. 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 Pacer lead seen along the base of the heart. Liver is unremarkable aside from scattered simple hepatic cysts. No suspicious enhancing lesion. Normal gallbladder and extrahepatic biliary system. Normal spleen. Normal pancreas. There is a 1.74 cm smooth, low attenuation left adrenal mass, consistent with an adrenal adenoma. Normal right adrenal gland. Normal right kidney. Normal left kidney. Normal visualized stomach. Normal small intestine. Retained stool noted in the colon. The appendix is visualized and appears normal. Appendix seen on coronal recon images 47 through 61 Normal abdominal aorta. Normal inferior vena cava. Normal retroperitoneum. Normal urinary bladder. There is absence of the uterus consistent with a prior hysterectomy. Normal abdominal wall. There are diffuse degenerative changes of the visualized lumbar spine, and pelvis. CT/CT Abd/Pelvis W/WO Contrast IMPRESSION: Simple hepatic cysts, no specific follow-up needed 1.74 cm left adrenal likely adenoma. ACR White Paper guidelines (Tovar-Gaxiola, et al. JACR 2017; 14(8):2574-0164) suggest no imaging follow-up is necessary. ACR White Paper guidelines (Tovar-Gaxiola, et al. JACR 2017; 14(8):2168-9682) suggest no imaging follow-up is necessary. Consider biochemical assays to determine functional status and exclude pheochromocytoma if biopsy/resection is planned. Retained stool in the colon Normal appendix visualized Electronically Signed: Edward Deal MD at 12:20 EDT ,
[2022-12-11 11:44] LABS: CREATININE FINGERSTICK < 0.9 mg/dL (0.55-1.02); EGFR FINGERSTICK > 60.0000 mL/min (>60)
== END | disposition home or self-care (01) ==
LOC: CT 10:50
PROVIDERS: PCP Internal Medicine; Referring Provider Internal Medicine; Visit Provider Internal Medicine
DX: R10.32 Left lower quadrant pain (principal)
CPT/HCPCS: 74178; Q9967

== ENCOUNTER 2023-10-11 11:33 | Emergency (ER) | payer MEDICARE, SELFPAY ==
[2023-10-11 11:33] VITALS: BP 158/99; PULSE 94; RESP 17; TEMP 35.7; O2SAT 95; BMI 35.6
--- NOTE | 2023-10-11 11:49 | EKG12_ITS ---
Test Reason : DIZZY Blood Pressure : / mmHG Vent. Rate : 074 BPM Atrial Rate : 074 BPM P-R Int : 154 ms QRS Dur : 072 ms QT Int : 356 ms P-R-T Axes : -15 032 065 degrees QTc Int : 395 ms Sinus rhythm with marked sinus arrhythmia Nonspecific T wave abnormality Abnormal ECG Confirmed by David Pabon ([id number]), department editor AYAZ MITCHELL ([id number]) on 10/12/2023 9:56:27 AM Referred By: Confirmed By:David Pabon
--- NOTE | 2023-10-11 11:54 | EX.ED.DYSGE1 ---
HPI <MANISH Zapata - Last Filed: 10/11/23 14:33> History of Present Illness Chief Complaint: Dizziness Narrative Narrative: Patient is a 72-year-old female with history of hypertension hyperlipidemia who presents to the emergency department with feeling of near syncope, intermittent shortness of breath it has been ongoing for the last 5 days. Patient denies any significant chest pain. Patient was seen at [facility] 5 days ago, patient received a full cardiac workup with troponins, CTA of the chest that was negative, CT of the abdomen pelvis was negative. Patient was then discharged home. Patient states she is continue to have these episodes and she is here now. She states she is here today because [facility] was unsure what to do with her, so they are here for reevaluation. [facility] <MANISH Zapata - Last Filed: 10/11/23 14:33> [facility] Medical History (Reviewed 04/11/21 @ 08:04 by Jie Limon STEAM LOCOMOTIVE FIRER/FIREMAN, STEAM LOCOMOTIVE FIRER/FIREMAN-C) Alcohol use Cardiology follow-up encounter Cystocele, midline DVT (deep venous thrombosis) Former smoker Gastric reflux High cholesterol History of echocardiogram History of stress test Hyperlipidemia Hypertension Leg cramps Post-menopausal Rash Restless legs Shortness of breath on exertion Varicose vein of leg Wears dentures Wears glasses Home Medications lisinopril 20 mg tablet 20 mg PO DAILY BP 01/09/21 [History Last Taken 03/31/21 03:30] lovastatin 40 mg tablet 40 mg PO DAILY cholesterol 01/09/21 [History Last Taken 03/30/21 08:00] multivitamin 1 tab PO DAILY supplement 01/09/21 [History Last Taken 03/30/21 08:00] dexamethasone 6 mg tablet 6 mg PO DAILY 04/11/21 [History Last Taken Unknown] naproxen 500 mg tablet (Naprosyn) 500 mg PO BID 04/11/21 [History Last Taken Unknown] cephalexin 500 mg capsule 500 mg PO TID 7 days #21 caps 10/11/23 [Rx Last Taken Unknown] ondansetron 4 mg disintegrating tablet 4 mg PO Q8H PRN PRN Nausea #10 tabs 10/11/23 [Rx Last Taken Unknown] Allergy/AdvReac Type Severity Reaction Status Date / Time codeine [From Celio LOYOLA] Allergy Mild hives Verified 03/31/21 06:05 guaifenesin Allergy Mild hives Verified 03/31/21 06:05 [From Celio Deras ] Family History Grandmother Colon cancer Sister Rectal cancer Father Prostate cancer Surgical History H/O cardiac radiofrequency ablation H/O heart surgery History of colonoscopy Social History Smoking Status: Former smoker substance use type: does not use caffeine: Yes seatbelt use: always do you feel safe at home: Yes additional social history: - 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 Positive for intermittent dyspnea Gastrointestinal: Negative for any abdominal pain, nausea, vomiting, diarrhea, constipation, blood in stool, blood in vomit : Negative for any retention, blood in urine. Positive for urinary frequency, dysuria Muscle skeletal: Negative for any neck pain, back pain Neurological: Negative for any headache, syncope, dizziness. Positive for near syncope, lightheadedness Skin: Negative for any rashes, itching, abrasions, lacerations Psychiatric: Negative for any depression, anxiety, stress, suicidal ideation, homicidal ideation Hematologic: Negative for any excessive bruising, easy bleeding EXAM <MANISH Zapata - Last Filed: 10/11/23 14:33> Physical Exam Narrative Exam Narrative: Vital signs reviewed. HEET: Head normocephalic atraumatic, TMs clear bilaterally. Posterior pharynx is clear, moist mucous membranes. Nares clear bilaterally. Neck: Supple with no lymphadenopathy or tenderness. No signs of meningismus. Cardiac: Irregular rate no murmurs gallops or rubs, equal peripheral pulses bilaterally. Respiratory: Lungs clear to auscultation bilaterally. No chest tenderness. Abdomen: Soft, nontender, nondistended. No abdominal bruit or pulsatile masses. No hepatosplenomegaly Extremities: No peripheral edema, no signs of gross trauma or deformity. Active full range of motion of all extremities. Neuro: Cranial nerves II through XII intact, no focal neurological deficits. NIH stroke score 0 Skin: Clean dry and intact with no rash, purpura, petechiae, vesicles or pustules. Backs/flank: No CVA tenderness, no midline spinal tenderness, no deformity. Psych: Normal mood and affect. No SI, HI or acute psychosis. Const Vital Signs: 10/11/23 11:33 10/11/23 11:49 10/11/23 13:43 Temperature 96.2 F L 98.1 F Temperature Source Temporal Temporal Pulse Rate 94 84 Respiratory Rate 17 16 Blood Pressure 158/99 H 162/94 H Blood Pressure Mean 118 116 Pulse Ox 95 97 Oxygen Delivery Method Room Air Room Air Room Air 10/11/23 14:56 Temperature 97.8 F Temperature Source Pulse Rate 75 Respiratory Rate 16 Blood Pressure 186/93 H Blood Pressure Mean 124 Pulse Ox 99 Oxygen Delivery Method <Dr. Tab Cleaning DO - Last Filed: 10/11/23 15:58> Physical Exam Const Vital Signs: 10/11/23 11:33 10/11/23 11:49 10/11/23 13:43 Temperature 96.2 F L 98.1 F Temperature Source Temporal Temporal Pulse Rate 94 84 Respiratory Rate 17 16 Blood Pressure 158/99 H 162/94 H Blood Pressure Mean 118 116 Pulse Ox 95 97 Oxygen Delivery Method Room Air Room Air Room Air 10/11/23 14:56 Temperature 97.8 F Temperature Source Pulse Rate 75 Respiratory Rate 16 Blood Pressure 186/93 H Blood Pressure Mean 124 Pulse Ox 99 Oxygen Delivery Method [facility] <MANISH Zapata - Last Filed: 10/11/23 14:33> [facility] Lab Data Labs: Laboratory Results - last 24 hr 10/11/23 11:55 WBC 8.4 RBC 4.61 Hgb 14.7 Hct 42.4 MCV 92.0 MCH 31.9 MCHC 34.7 RDW Std Deviation 44.8 H RDW Coeff of Krystin 13.3 Plt Count 193 MPV 10.9 Immature Gran % (Auto) 0.500 Neut % (Auto) 77.6 H Lymph % (Auto) 14.0 L [place] % (Auto) 6.6 Eos % (Auto) 1.1 Baso % (Auto) 0.2 Absolute Neuts (auto) 6.5 Absolute Lymphs (auto) 1.18 Nucleated RBC % 0 Sodium 140 Potassium 3.4 L Chloride 105 Carbon Dioxide 31.0 Anion Gap 4 L BUN 19 H Creatinine 1.13 H Estim Creat Clear Calc 51.59 Est GFR (MDRD) Af Amer 61 Est GFR (MDRD) Non-Af 51 L BUN/Creatinine Ratio 16.8 Glucose 99 Calcium 9.7 Troponin I High Sens 8 B-Natriuretic Peptide 32.0 Urine Color Yellow Urine Clarity Sl. Cloudy Urine pH 6.5 Ur Specific [place]raphill 1.010 Urine Protein 15 H Urine Glucose (UA) Normal Urine Ketones Negative Urine Occult Blood 10 H Urine Nitrite Positive H Urine Bilirubin 1 H Urine Urobilinogen 1 H Ur Leukocyte Esterase 500 H Urine RBC 0-5 SEEN Urine WBC 25-50 SEEN Ur Squamous Epith Cells 0-5 SEEN Urine Bacteria 1+ Urine Mucus 0 SEEN Radiography Diagnostic Testing: Clinical Impression(s) from Imaging Studies Chest X-Ray 10/11/23 12:00 IMPRESSION: Stable examination. No acute abnormality is seen. Electronically Signed: Franklin Caballero MD at 12:44 EDT , EKG Sinus rhythm with marked sinus arrhythmia: Attestation: I personally reviewed and interpreted this EKG as follows: Comments: Sinus rhythm with marked sinus arrhythmia, rate 74 bpm, TX interval 154 ms, QRS duration 72 ms, no acute ST elevation, no acute infarct noted. Treatment and Re-Evaluation :: Differential diagnosis includes however is not limited to: Cardiac arrhythmia, ACS, HI, pulmonary embolus, dehydration, UTI Patient appears to be in no obvious respiratory distress vital signs are stable, patient appears nontoxic. Patient presents to the emerged part with 5 days of near syncopal episodes, feeling of intermittent shortness of breath. Patient was seen 5 days ago, had a full workup including CTA of the chest, abdomen pelvis, troponins that were all negative. Patient was discharged home. Patient is here for reevaluation. Patient denies any symptoms at this time. Patient denies any specific chest pain, nausea or vomiting. Patient will receive a full workup including troponins, chest x-ray, urinalysis for complaints of urinary symptoms. All radiologic examinations were read, reviewed by the emergency department attending. From these reads, a plan of care will be put in place. Patient's urinalysis was positive for infection with 1+ bacteria 25-50 white blood cells, 500 leuks, positive for nitrites. This was sent for culture, IV Rocephin given to the patient, laboratory values showed a normal white blood cell count, CBC was mostly unremarkable, chemistries showed a slight elevation in creatinine at 1.13, patient is normally at 1.0, patient be given 1 L of normal saline. GFR 51, patient's troponin as well as BNP was negative. Patient will receive a second troponin, patient received IV fluids, IV Rocephin. At this time, I do believe the patient can be discharged home. Patient was ambulatory several times to the bathroom with no difficulty. Patient was given IV Rocephin IV fluids. Patient be discharged home nausea medicine as well as Keflex 3 times a day for 7 days. Urine culture was sent. She is happy the plan of care, all questions answered, patient stable for discharge. <Dr. Tab Cleaning, DO - Last Filed: 10/11/23 15:58> [facility] Narrative Medical decision making narrative: Differential diagnosis includes however is not limited to: Cardiac arrhythmia, ACS, HI, pulmonary embolus, dehydration, UTI Patient appears to be in no obvious respiratory distress vital signs are stable, patient appears nontoxic. Patient presents to the emerged part with 5 days of near syncopal episodes, feeling of intermittent shortness of breath. Patient was seen 5 days ago, had a full workup including CTA of the chest, abdomen pelvis, troponins that were all negative. Patient was discharged home. Patient is here for reevaluation. Patient denies any symptoms at this time. Patient denies any specific chest pain, nausea or vomiting. Patient will receive a full workup including troponins, chest x-ray, urinalysis for complaints of urinary symptoms. All radiologic examinations were read, reviewed by the emergency department attending. From these reads, a plan of care will be put in place. Patient's urinalysis was positive for infection with 1+ bacteria 25-50 white blood cells, 500 leuks, positive for nitrites. This was sent for culture, IV Rocephin given to the patient, laboratory values showed a normal white blood cell count, CBC was mostly unremarkable, chemistries showed a slight elevation in creatinine at 1.13, patient is normally at 1.0, patient be given 1 L of normal saline. GFR 51, patient's troponin as well as BNP was negative. Patient will receive a second troponin, patient received IV fluids, IV Rocephin. At this time, I do believe the patient can be discharged home. Patient was ambulatory several times to the bathroom with no difficulty. Patient was given IV Rocephin IV fluids. Patient be discharged home nausea medicine as well as Keflex 3 times a day for 7 days. Urine culture was sent. She is happy the plan of care, all questions answered, patient stable for discharge. This patient was seen with a PA/STEAM LOCOMOTIVE FIRER/FIREMAN Individually assessed they patient including history and physical. I have reviewed everything on the chart that is available and agree with the documentation provided by the PA/STEAM LOCOMOTIVE FIRER/FIREMAN including discussion about the assessment, treatment plan, discussion, and return precautions. Patient presented today after having a full cardiac workup with this and see the results above. Patient did not report to the nurse practitioner initially that she had some nausea today after eating some yogurt and some other food. Patient did have an EKG performed here which was sinus rhythm with a ventricular rate of 74 bpm without sign ischemic change on my interpretation. Chest x-ray my interpretation showed no acute process. Urinalysis consistent with UTI and she was given a dose of Rocephin IV as well as some IV fluids. Cardiac workup negative today. Ablations a delta troponin is show he had a cardiac workup with 2 troponins initially. Patient will be given Zofran and Keflex for home. Return precautions were discussed. Lab Data Labs: Laboratory Results - last 24 hr 10/11/23 11:55 WBC 8.4 RBC 4.61 Hgb 14.7 Hct 42.4 MCV 92.0 MCH 31.9 MCHC 34.7 RDW Std Deviation 44.8 H RDW Coeff of Krystin 13.3 Plt Count 193 MPV 10.9 Immature Gran % (Auto) 0.500 Neut % (Auto) 77.6 H Lymph % (Auto) 14.0 L [place] % (Auto) 6.6 Eos % (Auto) 1.1 Baso % (Auto) 0.2 Absolute Neuts (auto) 6.5 Absolute Lymphs (auto) 1.18 Nucleated RBC % 0 Sodium 140 Potassium 3.4 L Chloride 105 Carbon Dioxide 31.0 Anion Gap 4 L BUN 19 H Creatinine 1.13 H Estim Creat Clear Calc 51.59 Est GFR (MDRD) Af Amer 61 Est GFR (MDRD) Non-Af 51 L BUN/Creatinine Ratio 16.8 Glucose 99 Calcium 9.7 Troponin I High Sens 8 B-Natriuretic Peptide 32.0 Urine Color Yellow Urine Clarity Sl. Cloudy Urine pH 6.5 Ur Specific [place] 1.010 Urine Protein 15 H Urine Glucose (UA) Normal Urine Ketones Negative Urine Occult Blood 10 H Urine Nitrite Positive H Urine Bilirubin 1 H Urine Urobilinogen 1 H Ur Leukocyte Esterase 500 H Urine RBC 0-5 SEEN Urine WBC 25-50 SEEN Ur Squamous Epith Cells 0-5 SEEN Urine Bacteria 1+ Urine Mucus 0 SEEN Radiography Diagnostic Testing: Clinical Impression(s) from Imaging Studies Chest X-Ray 10/11/23 12:00 IMPRESSION: Stable examination. No acute abnormality is seen. Electronically Signed: Franklin Caballero MD at 12:44 EDT , Discharge Plan Triage Chief Complaint: Dizziness ED Midlevel Provider: Adrian Matthew ED Provider: Tab Cleaning Dx/Rx/DC Orders Clinical Impression: Dizziness, Acute UTI, Nausea Instructions: Urinary Tract Infections in Women, ED Dizziness, Uncertain Cause Prescriptions: New ondansetron 4 mg tablet,disintegrating 4 mg PO Q8H PRN PRN (Reason: Nausea) Qty: 10 0RF cephalexin 500 mg capsule 500 mg PO TID 7 Days Qty: 21 0RF No Action lisinopril 20 mg tablet 20 mg PO DAILY lovastatin 40 mg tablet 40 mg PO DAILY multivitamin Tablet 1 tab PO DAILY dexamethasone 6 mg Tablet 6 mg PO DAILY naproxen [Naprosyn] 500 mg Tablet 500 mg PO BID Primary Care Provider: Alix Byers Referrals: Jacqueline Hoang MD [Med Staff - Active Staff] - Alix Byers DO [Primary Care Provider] - Activity Restrictions/Additional Instructions: Please maintain hydration. Take the antibiotic 3 times a day until finished. The urine was sent for culture. Return for any worsening nausea, vomiting, fever or chills. Disposition Disposition: Home, Self Care Discharge Date/Time: 10/11/23 14:58
--- NOTE | 2023-10-11 12:00 | RAD_ITS ---
STUDY: X-RAY CHEST REASON FOR EXAM: Female, 72 years old. Chest pain TECHNIQUE: COMPARISON: None. FINDINGS: The lungs are clear and expanded. There is no demonstrated pleural abnormality. Sternal cerclage wires are present from a prior sternotomy. The patient is status post mitral valve replacement. Normal mediastinum and sharon. Normal visualized pulmonary arteries. Normal visualized aortic arch and descending thoracic aorta. There are degenerative changes of the visualized thoracic spine. Normal visualized ribs, clavicles, and shoulders. There is no demonstrated abnormality of the visualized soft tissue structures of the upper abdomen. RAD/Chest 1 View (Portable) IMPRESSION: Stable examination. No acute abnormality is seen. Electronically Signed: Franklin Caballero MD at 12:44 EDT ,
[2023-10-11 12:04] LABS: Mucous, Urine 0 SEEN /hpf (<or=2+)
[2023-10-11 12:07] LABS: Color, Urine Yellow (Yellow); Glucose, Dipstick Normal (Normal); Ketone-Dipstick Negative (Negative); Leukocyte Esterase-Dipstick 500 /ul (Negative); Nitrite-Dipstick Positive (Negative); Occult Blood-Urine 10 /ul (Negative); Protein-Dipstick 15 mg/dl (Negative); Urine Clarity Sl. Cloudy (Clear); Urine Urobilinogen 1 mg/dl (Normal); Urine pH 6.5 (5.0 - 8.0)
[2023-10-11 12:09] LABS: Urine Bilirubin Dipstick 1 mg/dL (Negative)
[2023-10-11 12:16] LABS: Bacteria 1+ /hpf (None Seen); Red Blood Cells-Urine 0-5 SEEN /hpf (0-5); Squamous Epithelial Cells - UA 0-5 SEEN /hpf (5-10); White Blood Cells 25-50 SEEN /hpf (0-5)
[2023-10-11 12:21] LABS: Absolute Lymphocyte Count 1.18 X10^3/uL (0.83-4.51); Absolute Neutrophil Count 6.5 X10^3/uL (2.0-7.7); Basophil# 0.02 X10^3/uL; Basophil% 0.2 % (0-1); Eosinophil# 0.09 X10^3/uL; Eosinophils% 1.1 % (0-5); Hematocrit 42.4 % (37-47); Hemoglobin 14.7 g/dL (12.0-15.0); Lymphocyte # 1.18 X10^3/ul (0.83-4.51); Mean Corp Hgb Conc 34.7 g/dL (32-36); Mean Corpuscular Hgb 31.9 pg (27.0-32.0); Mean Platelet Vol. 10.9 fl (6.2-12.0); Monocyte# 0.56 X10^3/uL; Monocyte% 6.6 % (0-10); NRBC Flagged by Analyzer 0 % (0-5); Neutrophil # 6.54 X10^3/uL (2.7-7.7); Neutrophil % 77.6 % (47-70); Platelet Count 193 K/mm3 (150-450); RBC Distribution Width CV 13.3 % (11.6-14.6); RBC Distribution Width SD 44.8 fl (35.1-43.9); Red Blood Count 4.61 M/mm3 (4.2-5.4); White Blood Count 8.4 K/mm3 (4.4-11.0)
[2023-10-11 12:26] LABS: Anion Gap 4 (5-15); BUN 19 mg/dL (7-18); BUN/Creat Ratio 16.8 RATIO (10-20); Calcium,Total 9.7 mg/dL (8.5-10.1); Chloride 105 mmol/L (98-107); Creatinine, Serum 1.13 mg/dL (0.55-1.02); EST Glomerular Filtration Rate 51 mL/min (>60); Est Glom Filt Rate - Afr Amer 61 mL/min (>60); Estimated Creatinine Clearance 51.59 ml/min; Glucose 99 mg/dL (74-106); Potassium 3.4 mmol/L (3.5-5.1); Sodium Level 140 mmol/L (136-145); Troponin-I HS (w/2H Reflex) 8 pg/mL (3.0-54.0)
[2023-10-11] MEDS: Ceftriaxone 1 GM/50 ML BAG IV (12:41)
[2023-10-11] MEDS: 0.9% Normal Saline (1000mL) 1,000 ML 999 ML IV (13:35)
[2023-10-11 13:43] VITALS: BP 162/94; PULSE 84; RESP 16; TEMP 36.7; O2SAT 97
[2023-10-11 14:02] LABS: Reflex Troponin-HS? (from REC) Y
[2023-10-11 14:56] VITALS: BP 186/93; PULSE 75; RESP 16; TEMP 36.6; O2SAT 99
== END 2023-10-11 14:58 | disposition home or self-care (01) ==
PROVIDERS: Nurse Practitioner; Emergency Provider Student in an Organized Health Care Education/Training Program; PCP Internal Medicine; Visit Provider Student in an Organized Health Care Education/Training Program
DX: N39.0 Urinary tract infection, site not specified (principal); Z87.891 Personal history of nicotine dependence; R11.0 Nausea; R42 Dizziness and giddiness; I10 Essential (primary) hypertension; Z79.899 Other long term (current) drug therapy; R06.02 Shortness of breath; E78.00 Pure hypercholesterolemia, unspecified
CPT/HCPCS: 71045; 80048; 81001; 83880; 84484; 85025; 87077; 87086; 87088; 87186; 93005; 96361; 96365; 99284; J7030; J7050

== ENCOUNTER → 2023-10-15 | Outpatient (CLI) | payer BC, MEDICARE, SELFPAY ==
--- NOTE | 2023-10-15 13:00 | US_ITS ---
STUDY: ULTRASOUND OF THE FEMALE PELVIS - COMPLETE REASON FOR EXAM: Female, 72 years old. abnormal vaginal bleeding. Previous hysterectomy. LMP: TECHNIQUE: Transabdominal TECHNICAL QUALITY: Adequate. COMPARISON: None. FINDINGS: Surgically absent uterus. Surgically absent ovaries. No evidence for mass. US/Pelvic (Non ) IMPRESSION: No abnormality seen status post hysterectomy and bilateral oophorectomy. Electronically Signed: Mike Brooks MD at 22:41 EDT ,
== END | disposition home or self-care (01) ==
LOC: US 12:59
PROVIDERS: PCP Internal Medicine; Referring Provider Internal Medicine; Visit Provider Internal Medicine
DX: N93.9 Abnormal uterine and vaginal bleeding, unspecified (principal)
CPT/HCPCS: 76856

== ENCOUNTER → 2023-11-10 | Outpatient (CLI) | payer MEDICARE, BC, SELFPAY ==
--- NOTE | 2023-11-10 07:20 | CT_ITS ---
STUDY: CT SOFT TISSUE NECK WITH CONTRAST REASON FOR EXAM: Female, 72 years old. Lymphadenopathy, cervical on left RADIATION DOSAGE (If Supplied By Facility): CTDIvol = ( 18.14 ) mGy, DLP = ( 530.29 ) mGycm TECHNIQUE: The patient was scanned in a multi-detector CT scanner. High resolution transaxial imaging was performed following intravenous administration of IV 100mL [id number]-370. Sagittal and coronal images were reconstructed. Individualized dose optimization techniques were used for this CT. COMPARISON: None. FINDINGS: Normal bilateral parotid glands. Normal bilateral manager utility spaces. Normal bilateral parapharyngeal spaces. Normal bilateral carotid spaces. Normal bilateral sublingual and submandibular glands and spaces. Normal visualized nasopharynx. Normal retropharyngeal space. Normal perivertebral space. Normal visualized bilateral faucial tonsils. The visualized tongue, tongue base and oropharynx are normal. The palpable lump corresponds to a 1.4 cm x 1.6 cm x 0.7 cm enhancing rounded soft tissue nodule just inferior to the inferior aspect of the left parotid gland. There is also evidence of a small lymph nodes in the anterior triangle of the neck bilaterally. There is no demonstrated solid or cystic mass lesion. There is no abnormal contrast enhancement. Normal epiglottis, bilateral vallecula and hypopharynx. The pre-epiglottic and paraglottic adipose spaces are normal. Normal visualized bilateral piriform sinuses, aryepiglottic folds, vocal cords, and arytenoid-cricoid articulations. Normal subglottic trachea. Mild heterogeneity of the right lobe of the thyroid gland. Normal visualized pulmonary apices. Normal visualized paranasal sinuses. There is multilevel degenerative changes of the cervical spine. CT/Soft Tissue Neck WITH Contrast IMPRESSION: The palpable lump corresponds to a 1.4 cm x 1.6 cm x 0.7 cm enhancing rounded soft tissue nodule just caudal to the inferior aspect of the left parotid gland. Electronically Signed: Franklin Caballero MD at 15:18 EDT ,
== END | disposition home or self-care (01) ==
LOC: CT 07:19
PROVIDERS: PCP Internal Medicine; Referring Provider Internal Medicine; Visit Provider Internal Medicine
DX: R59.0 Localized enlarged lymph nodes (principal)
CPT/HCPCS: 70491; Q9967